=== PATIENT | female | born 1990 | race Caucasian/White ===

== ENCOUNTER → 2017-08-26 | Outpatient (CLI) | payer BC ==
[~2017-08-26] MED LIST: IOPAMIDOL 370 MG/ML 200 ML INFUS..BTL INJ ONE; SODIUM CHLORIDE 0.9% 50ML 50 ML ONE
--- NOTE | 2017-08-26 12:30 | Diagnostic Imaging Report ---
PROCEDURE: CT ABDOMEN AND PELVIS WITH CONTRAST/CT Enterography TECHNIQUE: The abdomen and pelvis were scanned utilizing a multidetector helical scanner from the diaphragm to the lesser trochanter after the IV administration of 100 cc of Isovue 370 and the oral administration of Volumen. Coronal and sagittal multiplanar reformations were obtained. COMPARISON: None. INDICATIONS: COLON POLYPS, RECTAL BLEEDING, intestinal tumor removal in 1993 FINDINGS: LOWER THORAX: Unremarkable. HEPATOBILIARY: No focal hepatic lesions. No biliary ductal dilatation. The gallbladder is unremarkable. SPLEEN: No splenomegaly. PANCREAS: No focal masses or ductal dilatation. ADRENALS: No adrenal nodules. KIDNEYS/URETERS: No hydronephrosis, stones, or solid mass lesions. PELVIC ORGANS/BLADDER: Bladder and uterus are unremarkable. Mild amount of fluid in the endometrial cavity. A 2.8 x 2.4 cm fluid density lesion in the left ovary, consistent with a simple left ovarian follicular cyst. No adnexal masses. PERITONEUM / RETROPERITONEUM: No free air or fluid. LYMPH NODES: No lymphadenopathy. VESSELS: Unremarkable. GI TRACT: No bowel dilation or evidence of obstruction. Linear hyperdensities in the proximal to mid jejunum may represent surgical sutures (for example series 3, images 90-93). No focal areas of abnormal enhancement or increased vascularity. Apparent mild wall thickening at the anastomotic site, however, bowel is not well-distended as most of the Volumen is in the stomach. No definite intraluminal mass. BONES AND SOFT TISSUES: No aggressive lytic lesions. Soft tissues are unremarkable. IMPRESSION: 1. No acute abdominopelvic abnormalities. 2. No bowel dilation or evidence of obstruction. Findings in the mid jejunum likely represent postoperative changes. Apparent mild wall thickening at the anastomotic site is likely due to underdistention (a large portion of the given oral contrast is in the stomach). No definite bowel intraluminal mass. No areas of abnormal enhancement or increased vascularity. 3. 2.8 cm left ovarian simple follicular cyst. No further followup is indicated. Evens Calderon M.D. Dictated by: Evens Calderon M.D. on 08/26/2017 at 12:33 Electronically approved by: Evens Calderon M.D. on 08/26/2017 at 12:33
== END ==
LOC: CT 08:20
PROVIDERS: ATTEND Internal Medicine Gastroenterology
DX: K62.5 Hemorrhage of anus and rectum (principal); K64.4 Residual hemorrhoidal skin tags; D12.0 Benign neoplasm of cecum
CPT/HCPCS: 74177; 81025; Q9967